=== PATIENT | female | born 1980 | race American Indian/Alaskan Native ===

== ENCOUNTER 2017-12-15 19:07 | Emergency (ER) | payer MEDICAID ==
[2017-12-15] MEDS ORDERED: ZOFRAN IV ONE (20:31)
[2017-12-15] MEDS ORDERED: DILAUDID IV ONE (20:31)
--- NOTE | 2017-12-15 20:37 | Emergency Department Report ---
ED Headache HPI - General Chief Complaint: Headache Stated Complaint: HEADACHE,NAUSEA,LIGHTHEADED Time Seen by Provider: 12/15/17 20:05 Source: patient, family Exam Limitations: no limitations - History of Present Illness Initial Comments: This is a pleasant 37-year-old [place] female has a past medical history significant for ulcerative colitis as well as degenerative joint disease who presents to the emergency room with a one-week history of headache. Roughly one week ago the patient had her intrathecal pain pump replaced. Since that time she has suffered with worsening headaches. She does state that when she lays down it tends to ease up on the headaches but the headaches are still fairly severe. She rates them as 8 out of 10 lying down and 10 out of 10 when she sits up. She denies any kind of nausea vomiting or diarrhea. She denies any chest pain or shortness of breath or abdominal pain. The patient was 15 years old she had a history of ulcerative colitis which went into remission by the age of 21. 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 Pain management has put her on oral pain medications and in 2009 she got her first pain pump. She reports that previously she has not had any issues with her pain pumps and this is only the third one that she is ever had. Her neurosurgeon is Dr. Trever Murillo at [facility]. Her pain management doctor is Dr. Alistair Arias. Timing/Duration: 1 week Quality: severe Head Injury Location: global Recent Head Trauma: no recent headache/trauma, other (possibly related to recent surgery.) Modifying Factors: improves with: other (none) Associated Symptoms: fatigue. denies: confusion, facial pain, fever/chills, flushing, loss of consciousness, nausea/vomiting, nasal congestion, numbness in legs/feet, seizures, sinus infection Allergies/Adverse Reactions: Allergies No Known Allergies Allergy (Verified 01/31/16 13:10) Home Medications: Ambulatory Orders Pregabalin [Lyrica] 200 mg PO BID 06/09/14 Bupivacaine 0.25% On-Q Pump 1 vial SUBDERMAL Q6HR 06/26/16 Dilaudid-Hp (Nf) 1 vial SUBDERMAL Q6HR 06/26/16 Mononessa 28 Tablet 1 tab PO DAILY 06/26/16 Oxycodone HCl [Roxicodone TAB] 15 mg PO TID PRN 07/11/16 ED Review of Systems ROS: Stated complaint: HEADACHE,NAUSEA,LIGHTHEADED Other details as noted in HPI Comment: All other systems reviewed and negative Constitutional: weakness Eyes: as per HPI ENT: as per HPI Respiratory: no symptoms reported, see HPI Cardiovascular: as per HPI Endocrine: no symptoms reported Gastrointestinal: as per HPI Genitourinary: as per HPI Musculoskeletal: as per HPI Skin: as per HPI Neurological: as per HPI Psychiatric: as per HPI Hematological/Lymphatic: as per HPI ED Past Medical Hx - Past Medical History Hx Congestive Heart Failure: No Hx Diabetes: No Hx Asthma: No Hx COPD: No Additional medical history: ulcerative colitis,. chronic knee/back pain. ankylosingspondylitis - Surgical History Additional Surgical History: left knee replacement (d/t staph infection). intrathecal pain pump - Social History Smoking Status: Never Smoker Substance Use Type: None - Medications Home Medications: Home Medications Medication Instructions Recorded Confirmed Last Taken Type Pregabalin [Lyrica] 200 mg PO BID 06/09/14 12/15/17 12/15/17 History Bupivacaine 0.25% On-Q Pump 1 vial SUBDERMAL Q6HR 06/26/16 12/15/17 12/15/17 History Dilaudid-Hp (Nf) 1 vial SUBDERMAL Q6HR 06/26/16 12/15/17 12/15/17 History Mononessa 28 Tablet 1 tab PO DAILY 06/26/16 12/15/17 12/15/17 History Oxycodone HCl [Roxicodone TAB] 15 mg PO TID PRN 07/11/16 12/15/17 12/15/17 History ED Physical Exam - General Limitations: No Limitations General appearance: alert, in distress (mild) - Head Head exam: Present: atraumatic - Eye Eye exam: Present: normal appearance, PERRL, EOMI. Absent: scleral icterus, nystagmus Pupils: Present: normal accommodation. Absent: irregular, unequal, miosis, mydriatic - ENT ENT exam: Present: normal exam, normal orophraynx - Neck Neck exam: Present: normal inspection, full ROM. Absent: tenderness, meningismus - Respiratory Respiratory exam: Present: normal lung sounds bilaterally. Absent: respiratory distress, wheezes, rales, rhonchi, stridor - Cardiovascular Cardiovascular Exam: Present: regular rate, normal rhythm, normal heart sounds - GI/Abdominal GI/Abdominal exam: Present: soft. Absent: distended, tenderness, guarding, rebound, rigid - Rectal Rectal exam: Present: deferred - Extremities Exam Extremities exam: Present: normal inspection, full ROM, normal capillary refill. Absent: tenderness - Back Exam Back exam: Present: normal inspection - Neurological Exam Neurological exam: Present: alert, oriented X3, CN II-XII intact - Psychiatric Psychiatric exam: Present: normal affect, normal mood - Skin Skin exam: Present: warm, dry, intact ED Course Vital Signs 12/15/17 12/15/17 12/15/17 19:22 20:36 20:45 Temperature 97.8 F Pulse Rate 100 H Respiratory 18 Rate Blood Pressure 140/88 115/80 111/79 O2 Sat by Pulse 98 100 100 Oximetry 12/15/17 12/15/17 12/15/17 21:02 21:15 21:30 Temperature Pulse Rate Respiratory Rate Blood Pressure 97/62 92/65 O2 Sat by Pulse 98 100 98 Oximetry 12/15/17 12/15/17 21:45 22:00 Temperature Pulse Rate Respiratory Rate Blood Pressure 90/57 103/69 O2 Sat by Pulse 99 Oximetry - Reevaluation(s) Reevaluation #1: 12/15/17 20:[address] Murillo [facility]. He suggested we go ahead and transfer the patient to [facility]. I also spoke with the patient's sister who is an ER physician as well. At this time we will go ahead and proceed with transfer to [facility] since neurosurgery coverage is available there. 12/15/17 22:27 [facility] on ER diversion at this time. We will therefore do a direct admission. Dr. Murillo has accepted the patient. ED Medical Decision Making - Lab Data Result diagrams: 12/15/17 20:43 12/15/17 20:43 Critical care attestation.: If time is entered above; I have spent that time in minutes in the direct care of this critically ill patient, excluding procedure time. ED Disposition Clinical Impression: Spinal headache Disposition: DC/TX-02 [id number]-TRM GEN HOSP IP Is pt being admited?: No Does the pt Need Aspirin: No Condition: Stable Referrals: BRUCE CRUZ MD [Primary Care Provider] - 3-5 Days
[2017-12-15 20:51] LABS: Basophils # (Auto) 0.1 K/mm3 (0.0-0.1); Basophils % (Auto) 0.7 % (0.0-1.8); Eosinophils % (Auto) 0.5 % (0.0-4.3); Hematocrit 37.2 % (30.3-42.9); Hemoglobin 11.9 gm/dl (10.1-14.3); Lymphocytes # (Auto) 3.5 K/mm3 (1.2-5.4); Lymphocytes % (Auto) 37.7 % (13.4-35.0); Mean Corpuscular HGB Conc 32 % (30-34); Mean Corpuscular Hemoglobin 26 pg (28-32); Mean Corpuscular Volume 82 fl (79-97); Monocytes # (Auto) 0.6 K/mm3 (0.0-0.8); Monocytes % (Auto) 6.9 % (0.0-7.3); Platelet Count 304 K/mm3 (140-440); Red Blood Count 4.53 M/mm3 (3.65-5.03); Red Cell Distribution Width 17.8 % (13.2-15.2)
[2017-12-15 21:30] LABS: Alanine Aminotransferase 22 units/L (7-56); Albumin 3.8 g/dL (3.9-5); BUN/Creatinine Ratio 28; Blood Urea Nitrogen 14 mg/dL (7-17); Calcium 9.2 mg/dL (8.4-10.2); Hemolysis Index 22
[2017-12-16] MEDS ORDERED: DILAUDID IV ONE (00:30)
[2017-12-16 02:14] VITALS: BP 118/73
== END 2017-12-16 02:15 | disposition short-term general hospital (02) ==
LOC: ED 19:07
DX: R51 Headache (principal)
CPT/HCPCS: 36415; 80053; 85025; 96374; 96375; 96376; 99285; J1170; J2405

== ENCOUNTER 2017-12-26 13:33 | Emergency (ER) | payer MEDICAID ==
[2017-12-26] MEDS ORDERED: NACL 0.9% 1000 ML 1,000 ML IV ONE (14:22)
[2017-12-26] MEDS ORDERED: ZOFRAN IV ONE (14:24)
[2017-12-26] MEDS ORDERED: DILAUDID IV ONE ×3 (14:24→17:23)
[2017-12-26 14:49] LABS: Basophils % (Auto) 0.4 % (0.0-1.8); Eosinophils % (Auto) 0.7 % (0.0-4.3); Hematocrit 37.4 % (30.3-42.9); Hemoglobin 12.3 gm/dl (10.1-14.3); Lymphocytes # (Auto) 2.4 K/mm3 (1.2-5.4); Lymphocytes % (Auto) 38.5 % (13.4-35.0); Mean Corpuscular HGB Conc 33 % (30-34); Mean Corpuscular Hemoglobin 27 pg (28-32); Mean Corpuscular Volume 82 fl (79-97); Monocytes # (Auto) 0.4 K/mm3 (0.0-0.8); Monocytes % (Auto) 5.9 % (0.0-7.3); Platelet Count 270 K/mm3 (140-440); Red Blood Count 4.54 M/mm3 (3.65-5.03); Red Cell Distribution Width 18.4 % (13.2-15.2)
--- NOTE | 2017-12-26 15:08 | Cat Scan Report ---
CT HEAD WITHOUT CONTRAST: HISTORY: Headache. TECHNIQUE: Sequential 2.5mm CT images. COMPARISON: none. FINDINGS: Cerebral Parenchyma: Within normal limits. Cerebellum: Within normal limits. Brainstem: Within normal limits. Ventricles: Normal. Sella: Normal. Extra-axial spaces: Normal. Basal Cisterns: Normal. Intracranial Hemorrhage: None. Midline Shift: None. Calvarium: Normal. Sinuses: Normal. Mastoid Air Cells: Normal. Visualized Orbits: Normal. IMPRESSION: Cranial CT scan within normal limits.
[2017-12-26 15:10] LABS: BUN/Creatinine Ratio TNR; Blood Urea Nitrogen TNR mg/dL (7-17)
[2017-12-26 15:11] LABS: Calcium TNR mg/dL (8.4-10.2); Hemolysis Index TNR
--- NOTE | 2017-12-26 15:17 | Cat Scan Report ---
CT ABDOMEN PELVIS WITHOUT CONTRAST: HISTORY: Abdominal pain, headache, status post intrathecal pain pump insertion. COMPARISON: none. TECHNIQUE: Helical CT in 1.25mm intervals without IV contrast. Sagittal and coronal reconstructions. FINDINGS: Lung bases: Normal. Liver: Normal. Biliary system: Normal. Pancreas: Normal. Spleen: Normal. Kidneys/ureters/bladder: Normal. Adrenal glands: Normal. Aorta: Normal. Intestines: Normal. Appendix: Normal. Pelvic viscera: Normal. Ascites: None. Adenopathy: None. Musculoskeletal: Normal. Comment: The pain pump is located in the left lower quadrant subcutaneous tissues. Although the pump generates artifact, there appears to be an intermediate to low density fluid correction surrounding the pump which measures up to 2.1 cm in thickness anteriorly. The etiology of this fluid is unclear. I suppose a seroma or hemorrhagic products could be considered. I am not certain that this is related to a CSF leak. The pain pump tubing tracks along the left lateral and left flank soft tissues and enters the thecal space at the level of L3-4. No abnormal fluid collection near the spine is identified. IMPRESSION: Unremarkable CT scan of the abdomen and pelvis without contrast. Nonspecific fluid is identified surrounding the pain pump in the left lower quadrant subcutaneous tissues. Please see above.
[2017-12-26] MEDS ORDERED: REGLAN IV ONE (15:30)
[2017-12-26] MEDS ORDERED: BENADRYL IV ONE (15:30)
[2017-12-26] MEDS ORDERED: IMITREX SUB-Q ONE (15:40)
[2017-12-26 16:00] LABS: BUN/Creatinine Ratio 28; Blood Urea Nitrogen 14 mg/dL (7-17); Calcium 8.9 mg/dL (8.4-10.2); Hemolysis Index 14
[2017-12-26 16:18] VITALS: BP 108/56
[2017-12-26] MEDS ORDERED: NACL 0.9% 1000 ML 1,000 ML ONE (18:04)
--- NOTE | 2017-12-26 20:20 | Emergency Department Report ---
ED Headache HPI - General Chief Complaint: Headache Stated Complaint: Headache Time Seen by Provider: 12/26/17 14:21 Source: patient Exam Limitations: no limitations - History of Present Illness Initial Comments: 37 yo female with a past medical history of ulcerative colitis, anklosing spondylitis, chronic pain syndrome with intrathecal Dilaudid pump present in the hospital complains of headache 1.5 weeks. Symptoms started 2 days after her pain pump with change by her neurosurgeon Dr. Murillo. Just upon voice change without any reinsertion into the intrathecal space. Patient was here on the fifth with similar symptoms. She was subsequent [place] [facility] [place] imaging studies that did not show any leaking of the CSF fluid around the pain pump. She was diagnosed with a tension headache and discharged on Fioricet. Fioricet seemed to help for a little while. Her primary care doctor recommended that she discontinue the Fioricet since it can cause rebound and worsening headache and this did take Excedrin Migraine and Naprosyn. Despite this she has had no relief in her pain and has been sleeping all day. Pain is like a band around her head, constant, rated not tested in intensity, worse with sitting up, and positive associated nausea and light sensitivity. No complaints of fever or neck stiffness. Allergies/Adverse Reactions: Allergies No Known Allergies Allergy (Verified 12/26/17 13:41) Home Medications: Ambulatory Orders Pregabalin [Lyrica] 200 mg PO BID 06/09/14 Bupivacaine 0.25% On-Q Pump 1 vial SUBDERMAL Q6HR 06/26/16 Dilaudid-Hp (Nf) 1 vial SUBDERMAL Q6HR 06/26/16 Mononessa 28 Tablet 1 tab PO DAILY 06/26/16 Oxycodone HCl [Roxicodone TAB] 15 mg PO TID PRN 07/11/16 oxyCODONE /ACETAMINOPHEN [Percocet 5/325] 1 tab PO Q6HR PRN #10 tablet 12/26/17 ED Review of Systems ROS: Stated complaint: Headache Other details as noted in HPI Comment: All other systems reviewed and negative Other: Constitutional: No fevers chills Eyes: Little sensitivity ENT: No ear pain or throat pain Neck: Denies pain Respiratory: Denies cough wheezing shortness of breath Cardiovascular: Denies chest pain, palpitations, syncope GI: Denies abdominal pain, nausea, vomiting, diarrhea : Denies dysuria Musculoskeletal: Denies back pain, joint swelling Skin: Denies rash, lesions, erythema Neurologic: Denies numbness, weakness Psychiatric: Denies suicidal ideation, hallucinations ED Past Medical Hx - Past Medical History Hx Congestive Heart Failure: No Hx Diabetes: No Hx Asthma: No Hx COPD: No Additional medical history: ulcerative colitis,. chronic knee/back pain. ankylosingspondylitis - Surgical History Additional Surgical History: left knee replacement (d/t staph infection). intrathecal pain pump - Social History Smoking Status: Never Smoker Substance Use Type: None - Medications Home Medications: Home Medications Medication Instructions Recorded Confirmed Last Taken Type Pregabalin [Lyrica] 200 mg PO BID 06/09/14 12/15/17 12/15/17 History Bupivacaine 0.25% On-Q Pump 1 vial SUBDERMAL Q6HR 06/26/16 12/15/17 12/15/17 History Dilaudid-Hp (Nf) 1 vial SUBDERMAL Q6HR 06/26/16 12/15/17 12/15/17 History Mononessa 28 Tablet 1 tab PO DAILY 06/26/16 12/15/17 12/15/17 History Oxycodone HCl [Roxicodone TAB] 15 mg PO TID PRN 07/11/16 12/15/17 12/15/17 History oxyCODONE /ACETAMINOPHEN [Percocet 1 tab PO Q6HR PRN #10 tablet 12/26/17 Unknown Rx 5/325] ED Physical Exam - General Limitations: No Limitations - Other Other exam information: General: No limitations, patient is alert in no acute distress Head exam: Atraumatic, normocephalic Eyes exam: Normal appearance, pupils equal reactive to light, extraocular movements intact. Positive light sensitivity ENT: Moist mucous membrane, normal oropharynx Neck exam: Normal inspection, full range of motion, no meningismus nontender Respiratory exam: Clear to auscultation bilateral, no wheezes, rales, crackles Cardiovascular: Normal rate and rhythm, normal heart sounds Abdomen: Soft, nondistended, and nontender, with normal bowel sounds, no rebound, or guarding. Previous surgical scars noted. Left lower quadrant at area of of pain pump without erythema, warmth, or fluctuance. Extremity: Full range of motion normal inspection no deformity Back: Normal Inspection, full range of motion, no tenderness Neurologic: Alert, oriented x3, cranial nerves intact, no motor or sensory deficit Psychiatric: normal affect, normal mood Skin: Warm, dry, intact ED Course Vital Signs 12/26/17 12/26/17 12/26/17 13:41 14:29 16:16 Temperature 98 F Pulse Rate 93 H 73 72 Respiratory 18 16 16 Rate Blood Pressure 139/90 Blood Pressure 102/65 108/56 [Left] O2 Sat by Pulse 98 98 95 Oximetry 12/26/17 19:28 Temperature 98.0 F Pulse Rate Respiratory Rate Blood Pressure Blood Pressure [Left] O2 Sat by Pulse Oximetry ED Medical Decision Making - Lab Data Result diagrams: 12/26/17 14:31 12/26/17 15:20 Lab Results 12/26/17 12/26/17 12/26/17 Range/Units 14:31 14:31 15:20 WBC 6.3 (4.5-11.0) K/mm3 RBC 4.54 (3.65-5.03) M/mm3 Hgb 12.3 (10.1-14.3) gm/dl Hct 37.4 (30.3-42.9) % MCV 82 (79-97) fl MCH 27 L (28-32) pg MCHC 33 (30-34) % RDW 18.4 H (13.2-15.2) % Plt Count 270 (140-440) K/mm3 Lymph % (Auto) 38.5 H (13.4-35.0) % [place] % (Auto) 5.9 (0.0-7.3) % Eos % (Auto) 0.7 (0.0-4.3) % Baso % (Auto) 0.4 (0.0-1.8) % Lymph # 2.4 (1.2-5.4) K/mm3 [place] # 0.4 (0.0-0.8) K/mm3 Eos # 0.0 (0.0-0.4) K/mm3 Baso # 0.0 (0.0-0.1) K/mm3 Seg Neutrophils % 54.5 (40.0-70.0) % Seg Neutrophils # 3.4 (1.8-7.7) K/mm3 Sodium TNR 140 Potassium TNR 4.0 Chloride TNR 104.1 Carbon Dioxide TNR 19 L Anion Gap TNR 21 BUN TNR 14 Creatinine TNR 0.5 L Estimated GFR TNR > 60 BUN/Creatinine Ratio TNR 28 Glucose TNR 89 Calcium TNR 8.9 - Radiology Data Radiology results: report reviewed CT head: No acute finding CT abdomen and pelvis without contrast: nonspecific fluid collection of 2.1 cm anterior to the polyp identified. Source of fluid unclear - Medical Decision Making Patient treated with multiple medications in the ED including Dilaudid, Zofran, Reglan, Benadryl, Imitrex, Fiorcet and high flow oxygen therapy. She states her pain has decreased from a 9 to a 6. During her ED stay I discussed case multiple times with the neurosurgeon Dr. Murillo. Informed him of the 2.1 cm fluid collection. He states it unlikely represents a CSF leak. Once patient's pain is improved she can follow-up as an outpatient. I'm unclear patient CT [place] [facility] [place] showed any fluid collection. A copy of the report and imaging studies will be provided to take to Dr. Murillo for her follow-up visit early next week. - Differential Diagnosis migraine, tension, dural headache, cluster headache Critical Care Time: No Critical care attestation.: If time is entered above; I have spent that time in minutes in the direct care of this critically ill patient, excluding procedure time. ED Disposition Clinical Impression: Chronic pain syndrome, Persistent headaches Disposition: - TO HOME OR SELFCARE Is pt being admited?: No Does the pt Need Aspirin: No Condition: Stable Instructions: Tension Headache (ED) Additional Instructions: Continue current medication. Take the prescribed pain medication only as needed for breakthrough pain. Return if symptoms worsen Prescriptions: oxyCODONE /ACETAMINOPHEN [Percocet 5/325] 1 tab PO Q6HR PRN #10 tablet PRN Reason: Pain Referrals: MAKENNA OSHEA MD [Primary Care Provider] - 3-5 Days Time of Disposition: 20:26
== END 2017-12-26 21:17 | disposition home or self-care (01) ==
LOC: ED 13:33
DX: G89.4 Chronic pain syndrome (principal); R51 Headache
CPT/HCPCS: 36415; 70450; 74176; 80048; 85025; 96361; 96372; 96374; 96375; 96376; 99284; J1170; J1200; J2405; J2765; J7030; J3030